=== PATIENT | male | born 1995 | race Caucasian/White ===

== ENCOUNTER 2016-08-26 11:47 | Emergency (ER) | payer MEDICAID ==
[~2016-08-26] VITALS: Ht 180.3 cm; Wt 74.8 kg
[2016-08-26 11:56] VITALS: BP 132/80
[2016-08-26] MEDS ORDERED: AMOXICILLIN500 M2 PO (12:48)
== END 2016-08-26 13:05 | disposition home or self-care (01) ==
LOC: ED 11:47
DX: J02.9 Acute pharyngitis, unspecified (principal)

== ENCOUNTER 2016-10-17 00:05 | Emergency (ER) | payer OTHER ==
[~2016-10-17] VITALS: Ht 180.3 cm; Wt 74.8 kg
[~2016-10-17 00:05] MED LIST: AMOXICILLIN500 M2 PO
[2016-10-17 00:12] VITALS: BP 145/94
== END 2016-10-17 01:34 | disposition home or self-care (01) ==
LOC: ED 00:05
DX: H10.211 Acute toxic conjunctivitis, right eye (principal)

== ENCOUNTER 2016-10-22 16:18 | Emergency (ER) | payer OTHER ==
[~2016-10-22] VITALS: Wt 74.8 kg
[2016-10-22 16:36] VITALS: BP 117/71
[2016-10-22 18:13] LABS: BILIRUBIN 1+ (NEGATIVE); BLOOD TRACE-INTACT (NEGATIVE); CLARITY CLEAR (CLEAR); COLOR YELLOW (YELLOW); GLUCOSE NEGATIVE (NEGATIVE); KETONE NEGATIVE (NEGATIVE); LEUKO ESTERASE NEGATIVE (NEGATIVE); NITRITE NEGATIVE (NEGATIVE); PROTEIN TRACE (NEGATIVE); SPECIFIC GRAVITY 1.015 (1.005-1.030)
[2016-10-22 18:20] LABS: MUCOUS 1+
[2016-10-22 18:21] LABS: BACTERIA 1+; EPITHELIAL CELLS 0-2
[2016-10-22] MEDS ORDERED: NAPROSYN500 MG PO (18:38)
[2016-10-22] MEDS ORDERED: CYCLOBENZAPRINE10 MG PO (18:38)
== END 2016-10-22 19:14 | disposition home or self-care (01) ==
LOC: ED 16:18
PROVIDERS: Nurse Practitioner Family
DX: S39.011A Strain of muscle, fascia and tendon of abdomen, initial encounter (principal); W17.89XA Other fall from one level to another, initial encounter; Y93.11 Activity, swimming; Y92.828 Other wilderness area as the place of occurrence of the external cause; Y99.9 Unspecified external cause status

== ENCOUNTER 2019-05-04 13:40 | Emergency (ER) | payer OTHER ==
[~2019-05-04] VITALS: Ht 177.8 cm; Wt 79.4 kg
[~2019-05-04 13:40] MED LIST changes: +CYCLOBENZAPRINE10 MG PO; +NAPROSYN500 MG PO
[2019-05-04 13:41] VITALS: BP 107/59
[2019-05-04] MEDS ORDERED: Motrin,Rufen800 MG PO (15:33)
[2019-05-04] MEDS ORDERED: CYCLOBENZAPRINE5 M3 PO (15:33)
== END 2019-05-04 15:41 | disposition home or self-care (01) ==
LOC: ED 13:40
DX: M54.16 Radiculopathy, lumbar region (principal); J45.909 Unspecified asthma, uncomplicated

== ENCOUNTER 2024-03-21 12:13 | Emergency (ER) | payer OTHER ==
[~2024-03-21] VITALS: Ht 177.8 cm; Wt 106.6 kg
[~2024-03-21 12:13] MED LIST changes: +CYCLOBENZAPRINE5 M3 PO; +Motrin,Rufen800 MG PO
[2024-03-21 12:23] VITALS: BP 161/81
[2024-03-21] MEDS ORDERED: WELLBUTRIN SR100 MG PO (12:25)
[2024-03-21] MEDS ORDERED: ATHLETIC FOOT C30 GM T (12:44)
[2024-03-21] MEDS ORDERED: CLOTRIMAZOLE 15 GM TUBE T ONE (12:45)
== END 2024-03-21 13:00 | disposition home or self-care (01) ==
LOC: ED 12:13
DX: N48.1 Balanitis (principal); J45.909 Unspecified asthma, uncomplicated

== ENCOUNTER → 2025-04-25 | Outpatient (CLI) | payer OTHER ==
[~2025-04-25] MED LIST changes: +ATHLETIC FOOT C30 GM T; +WELLBUTRIN SR100 MG PO
== END | disposition home or self-care (01) ==
LOC: MRI 04-24 16:30
PROVIDERS: ATTEND Nurse Practitioner Family
DX: G93.9 Disorder of brain, unspecified (principal); R51.9 Headache, unspecified